=== PATIENT | male | born 1985 | race Hispanic/Latino ===

== ENCOUNTER 2019-09-08 14:06 | Emergency (ER) | payer SELFPAY ==
[2019-09-08] MEDS ORDERED: Lidocaine 1% PF 5 ML VIAL ONE ×2 (15:11→16:54)
--- NOTE | 2019-09-08 16:44 | RAD ---
RIGHT THUMB THREE VIEWS: 09/08/19 There is a small calcific density present just lateral to the first MCP joint which also is near wher e the patient's laceration lies. While this could be a foreign body from the laceration, it appears m ore like a prior avulsion fracture from trauma in the past. Otherwise, there was no sign of acute fra cture or dislocation. The joint surfaces appear normal. IMPRESSION: Small calcific density on the radial side of the first MCP joint near the base of the laceration. For eign body versus old bony injury. The latter seems more probable. Code T POS: HOME
[2019-09-08] MEDS ORDERED: Cephalexin 250 MG CAP ONE (16:54)
[2019-09-08] MEDS ORDERED: Triple Antibiotic Oint 1 GM Packet ONE (17:51)
== END 2019-09-08 18:10 | disposition home or self-care (01) ==
LOC: BURERS 14:06
DX: S61.012A Laceration without foreign body of left thumb without damage to nail, initial encounter (principal); W01.118A Fall on same level from slipping, tripping and stumbling with subsequent striking against other sharp object, initial encounter; Y99.0 Civilian activity done for income or pay
CPT/HCPCS: 12002; J2001